=== PATIENT | female | born 1980 | race Caucasian/White ===

== ENCOUNTER 2024-11-07 02:21 | Emergency (ER) | payer OTHER, SELFPAY ==
[2024-11-07] VITALS (10 sets, daily range): BP systolic 152–210; BP diastolic 75–125; PULSE 87–98; RESP 16–18; TEMP 36.7–37; O2SAT 94–99; BMI 29.8
--- OUTSIDE RECORDS SUMMARY | 2024-11-07 02:24 | XMS_ITS | Clinical Summary ---
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 Active famotidine (PEPCID) 40 mg tabletIndications :Gastroesophageal reflux disease, unspecified whether esophagitis present Take 1 Tablet (40 mg) by mouth two times daily. 60 Tablet 3 Active hydrOXYzine pamoate (VISTARIL) 25 mg capsuleIndication s:Anxiety Take 1-2 Capsules (25-50 mg) by mouth at bedtime if needed (sleep or anxiety). 20 Capsule 3 Active losartan-hydrochl orothiazide, 50-12.5 mg, (HYZAAR) 50-12.5 mg tabletIndications :Primary hypertension Take 1 Tablet by mouth once daily. 30 Tablet 3 Active famotidine (PEPCID) 40 mg tabletIndications :Gastroesophageal reflux disease, unspecified whether esophagitis present Take 1 Tablet (40 mg) by mouth once daily. 30 Tablet 3 Active LORazepam (ATIVAN) 0.5 mg tabIndications:An xiety Take 1 Tablet (0.5 mg) by mouth three times daily. 6 Tablet 3 Active Active Problems Problem Noted Date Diagnosed Date Benign cyst of left breast 01/05/2022 Primary hypertension 01/05/2022 Immunizations Immunization Administration Dates Next Due DTaP 09/27/1983,12/23/1980,1979 ,1979 HepA-HepB (Twinrix) 11/27/2012,04/09/2012,2011 Hepatitis B, Unspecified 11/28/2011 Influenza A (H1N1), Inactivated 06/30/2009 Influenza Virus, Unspecified 05/04/2014 Influenza, IIV3 (Age >=3 years) 04/09/2012 Influenza, IIV4 06/06/2016,06/23/2015 MMR 09/23/1980,07/29/1980 Polio Virus, Unspecified 09/27/1983,12/23/1980,0 1979,1979 Tdap 10/06/2011 Family History Medical History Relation Name Comments Heart failure Father Cancer-breast Maternal Grandmother Cancer-breast Sister Relation Name Status Comments Father Maternal Grandmother Sister Social History Tobacco Use Types Packs/Day Years Used Date Smoking Tobacco: Never Smokeless Tobacco: Never Tobacco Cessation:Counseling Given: Yes Alcohol Use Standard Drinks/Week Comments No 0 (1 standard drink = 0.6 oz pur e alcohol) Social Connections Answer Date Recorded Frequency of Communication with Friends and Fami ly Not on file 01/05/2022 Comments No Sex and Gender Information Value Date Recorded Sex Assigned at Not on file 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 Gender Identity Not on file Sexual Orientation Not on file Obstetrics History Last Filed Vital Signs Vital Sign Reading Time Taken Comments Blood Pressure 198/117 10/25/2022 10:10 PM CDT Provider aware Pulse 94 10/25/2022 6:28 PM CDT Temperature 36.2 C (97.1 F) 10/25/2022 10:31 PM CDT Respiratory Rate 14 10/25/2022 10:3 1 PM CDT Oxygen Saturation 97% 10/25/2022 6:2 8 PM CDT Inhaled Oxygen Concentration - - Weight 81.6 kg (179 lb 12.8 oz) 10/25/2022 5:30 PM CDT Height 170.2 cm (5' 7) 10/25/2022 5:30 PM CDT Body Mass Index 28.16 10/25/2022 5:30 PM CDT Plan of Treatment Health Maintenance Due Date Last Done Comments HIV for age 15-65 1994 Hepatitis C screening for age 18-79 1997 Pap test for age 21-65 02/09/2000 Depression screening for age 12+ 11/08/2017 11/08/2016 Tetanus booster 10/05/2021 10/06/2011 BMI (ht and wt on same day) for age 18+ 01/05/2023 01/05/2022, 06/20/2017, 11/08/2016 Colonoscopy through age 75 02/09/2024 Lipids for age 45-75 02/09/2024 Mammogram for age 45-75 02/09/2024 01/04/2022 COVID-19 vaccine series (2023- season) 2024 Influenza Vaccine (Season Ended) 2025 06/06/2016, 06/23/2015, 05/04/2014, Additional history exists Tdap Completed 10/06/2011 Pneumococcal series for age 6-49 Aged Out No longer eligible based on patient's age to complete this topic Procedures Procedure Name Priority Date/Time Associated Diagnosis Comments XR MAMMO MAXWELL BILAT DIAG MALLORY 01/04/2022 2:22 PM CDT Lump in female breast from Last 3 Months or Most Recently Relevant to Health Maintenance Results * XR MAMMO MAXWELL BILAT DIAG (01/04/2022 2:22 PM CDT) Anatomical Region Laterality Modality BREASTS, Breast Left, Breast Right Bilateral Mammography Impressions 01/04/2022 3:40 PM CDT 3.9 cm simple cyst LEFT breast 2 o'clock 3 cm from the nipple. No malignancy. RECOMMENDATIONS: Annual BILATERAL screening mammography. Results and recommendations were discussed with the patient at the time of the exam. BI-RADS Category 2: Benign Dictated by: Vito Velez MD @01/04/2022 2:22:09 PM / VAHID:[email or web address] PATIENTS: You will also receive a letter with your examination results in an easy to read format. If you have questions about your results, please contact your referring provider. Narrative 01/04/2022 3:40 PM CDT For Patients: As a result of the Century Cures Act, medical imaging exams and procedure reports are released immediately into your electronic medical record. You may view this report before your referring provider. If you have questions, please contact your health care provider. DIGITAL DIAGNOSTIC BILATERAL MAMMOGRAM USING TOMOSYNTHESIS AND COMPUTER-AIDED DETECTION, 01/04/2022 LEFT BREAST ULTRASOUND, 01/04/2022 CLINICAL HISTORY: LEFT breast lump. COMPARISON: None. TECHNIQUE: Digital BILATERAL mammogram in four projections. Tomosynthesis and computer-aided detection utilized. Real-time ultrasound imaging of LEFT breast with imaging documentation. BREAST COMPOSITION: The breasts are heterogeneously dense, which may obscure small masses. FINDINGS: 3D CC/MLO mammogram submitted bilaterally. Circumscribed mass upper outer quadrant LEFT breast. No architectural distortion. Normal RIGHT breast mammograms. Incidental benign punctate calcifications bilaterally. Targeted LEFT breast ultrasound performed 2 o'clock 3 cm from the nipple. In this location there is a circumscribed anechoic simple cyst with increased through-transmission measuring 3.9 x 2.9 x 3.3 cm. us Antonio Molina MD MAMMO Final Resu lt from Last 3 Months or Most Recently Relevant to Health Maintenance Additional Health Concerns Infection Onset Date Last Indicated MRSA Comment:MRSA - 06/2006 wound 01/28/2014 01/28/2014 Insurance [address] [place] [address] [facility] [place] [facility] Member Subscriber Plan / Payer (Ef fective 2022-Present) Name:Krystle Michaels Relation to Subscriber:Self Name:Krystle Michaels Payer ID:Not on file Group ID:Not on file Type:Not on file Address: FOR [employer] [address] [place] [address] Care Teams Exceptional Children'S Teacher Relationship Specialty Start Date End Date Pcp, No . PCP - General 11/08/16
[2024-11-07] MEDS: TRANEXAMIC ACID 100 MG/ML INJ 1000 MG IV (02:51)
--- NOTE | 2024-11-07 02:55 | ED_ITS ---
HPI - General Adult General Date Seen: 11/07/24 <Chel Villalobos MD - Last Filed: 11/07/24 03:01> Chief complaint: Vaginal Bleeding <Chel Villalobos MD - Last Filed: 11/07/24 03:01> Stated complaint: Heavy vaginal bleeding, large clots <Chel Villalobos MD - Last Filed: 11/07/24 03:01> Time Seen by Provider: 11/07/24 02:30 <Chel Villalobos MD - Last Filed: 11/07/24 03:01> History of Present Illness HPI narrative: Patient is a 44-year-old woman here for evaluation of heavy vaginal bleeding. She notes she generally has regular periods still, a year ago she had a very heavy period when she was visiting her sister in [place] and was seen in an ER there. She says that they gave her some kind of pain medication but does not think they gave her anything else. She does note that they did an ultrasound and said that she did not have any abnormalities. Since then she has had regular, normal periods. She got her period a couple of days ago and started on normal, but tonight she had heavy bleeding with clots. She feels kind of lightheaded but has not fainted. No significant abdominal pain. No suspicion of . She is supposed to be on high blood pressure medicines but has not been to a doctor for while, she does admit she has fever of healthcare. She does not have a doctor either primary care or [facility]. No current medications. <Chel Villalobos MD - Last Filed: 11/07/24 03:01> Related Data Home medications: Previous Rx's ?Medication ?Instructions ?Recorded lisinopril 20 mg tablet 20 mg PO DAILY #30 tabs 11/07/24 medroxyprogesterone 10 mg tablet 20 mg (2 x 10 mg) PO DAILY #9 tabs 11/07/24 (Provera) <Chel Villalobos MD - Last Filed: 11/07/24 03:01> Allergies/adverse reactions: Allergies Allergy/AdvReac Type Severity Reaction Status Date / Time No Known Drug Allergies Allergy Verified 11/07/24 02:31 <Chel Villalobos MD - Last Filed: 11/07/24 03:01> Review of Systems Status of ROS: Reports: 10 or more systems reviewed and unremarkable except as noted in History and below <Chel Villalobos MD - Last Filed: 11/07/24 03:01> [facility] Medical History: Medical History GERD (gastroesophageal reflux disease) ?K21.9 - Gastro-esophageal reflux disease without esophagitis (ICD-10) MRSA (methicillin resistant staph aureus) culture positive ?Z22.322 - Carrier or suspected carrier of Methicillin resistant Staphylococcus aureus (ICD-10) Anxiety ?F41.9 - Anxiety disorder, unspecified (ICD-10) Primary hypertension ?I10 - Essential (primary) hypertension (ICD-10) Benign cyst of left breast ?N60.02 - Solitary cyst of left breast (ICD-10) <Chel Villalobos MD - Last Filed: 11/07/24 03:01> Surgical History: Surgical History History of neck surgery ?Z98.890 - Other specified postprocedural states (ICD-10) History of cholecystectomy ?Z90.49 - Acquired absence of other specified parts of digestive tract (ICD- 10) <Chel Villalobos MD - Last Filed: 11/07/24 03:01> Social History: Social History Smoking Status: Never smoker Second hand tobacco smoke exposure: No How often do you have a drink containing alcohol: never AUDIT-C Alcohol total score: 0 Non-prescribed substance use: denies use <Chel Villalobos MD - Last Filed: 11/07/24 03:01> Exam Narrative: Exam Narrative: Vital signs reviewed In general, alert, nontoxic Head: Normocephalic, atraumatic. Eyes: Sclera clear. Pupils equal and reactive. ENT: Mucous membranes moist. Neck: Supple without adenopathy. Heart: Regular rate and rhythm without murmur. Lungs: Clear. No increased work of breathing, crackles or wheezes. Abdomen: Soft, nontender to palpation. Pelvic: Normal external genitalia. There was some liquid blood in the vagina, small clot was at the cervix. She has mild to moderate continued bleeding from the cervix, no other abnormalities. Extremities: Well perfused, pulses intact. No significant edema. Neurologic: Alert, conversant. Speech fluent, face symmetric. Moves all extremities equally. Skin: Warm, dry well perfused. Affect: Normal. <Chel Villalobos MD - Last Filed: 11/07/24 03:01> Const: Vital Signs, click to edit/add: Vital Signs - 24 hr 11/07/24 02:27 11/07/24 02:59 11/07/24 03:01 Temperature 98.1 F Pulse Rate 91 90 Pulse Rate [Pulse Oximeter] 98 Respiratory Rate 16 Blood Pressure 165/100 H 172/107 H Blood Pressure [Ri ght Upper Arm] 210/125 H Pulse Oximetry 99 96 97 Oxygen Delivery Me thod Room Air 11/07/24 03:32 11/07/24 04:02 11/07/24 04:32 Temperature Pulse Rate 89 87 87 Pulse Rate [Pulse Oximeter] Respiratory Rate Blood Pressure 179/101 H 159/75 H 162/82 H Blood Pressure [Ri ght Upper Arm] Pulse Oximetry 94 96 94 Oxygen Delivery Me thod 11/07/24 05:02 11/07/24 05:32 11/07/24 06:02 Temperature 98.6 F Pulse Rate 87 87 Pulse Rate [Pulse Oximeter] Respiratory Rate 18 Blood Pressure 152/90 H 165/92 H 156/97 H Blood Pressure [Ri ght Upper Arm] Pulse Oximetry 98 94 Oxygen Delivery Me thod 11/07/24 06:32 Temperature 98.6 F Pulse Rate 90 Pulse Rate [Pulse Oximeter] Respiratory Rate 18 Blood Pressure 160/100 H Blood Pressure [Ri ght Upper Arm] Pulse Oximetry 95 Oxygen Delivery Me thod <Chel Villalobos MD - Last Filed: 11/07/24 03:01> Vital Signs, click to edit/add: Vital Signs - 24 hr 11/07/24 02:27 11/07/24 02:59 11/07/24 03:01 Temperature 98.1 F Pulse Rate 91 90 Pulse Rate [Pulse Oximeter] 98 Respiratory Rate 16 Blood Pressure 165/100 H 172/107 H Blood Pressure [Ri ght Upper Arm] 210/125 H Pulse Oximetry 99 96 97 Oxygen Delivery Me thod Room Air 11/07/24 03:32 11/07/24 04:02 11/07/24 04:32 Temperature Pulse Rate 89 87 87 Pulse Rate [Pulse Oximeter] Respiratory Rate Blood Pressure 179/101 H 159/75 H 162/82 H Blood Pressure [Ri ght Upper Arm] Pulse Oximetry 94 96 94 Oxygen Delivery Me thod 11/07/24 05:02 11/07/24 05:32 11/07/24 06:02 Temperature 98.6 F Pulse Rate 87 87 Pulse Rate [Pulse Oximeter] Respiratory Rate 18 Blood Pressure 152/90 H 165/92 H 156/97 H Blood Pressure [Ri ght Upper Arm] Pulse Oximetry 98 94 Oxygen Delivery Me thod 11/07/24 06:32 Temperature 98.6 F Pulse Rate 90 Pulse Rate [Pulse Oximeter] Respiratory Rate 18 Blood Pressure 160/100 H Blood Pressure [Ri ght Upper Arm] Pulse Oximetry 95 Oxygen Delivery Me thod <Chel Arizmendi MD - Last Filed: 11/07/24 09:28> Course Course ED Course: After her exam, an IV was placed, I am going to send a type and screen although think the likelihood of needing transfusion is low. I am going to give her some TXA, check a hemoglobin and a test. Will reassess after labs. Did discuss with her that I will prescribe lisinopril for her as this is what she used to be on for her blood pressure, at least 1 of the medicines she was on. Reviewed with her that she really needs to establish with primary care so that her blood pressure can be better controlled. She will also need to be followed by [facility]. <Chel Villalobos MD - Last Filed: 11/07/24 03:01> Reevaluation(s) Reevaluation #1: Patient results of ultrasound discussed with Dr. Goodman patient account specialist strategic consultant. Feels that patient could go home but if further bleeding recommends Provera 60 mg or 3 tablets today followed by 1 daily for 9 days. Currently awaiting 2nd hemoglobin to ensure stability. Review of chart notes no IV fluids and medication given was TXA <Chel Arizmendi MD - Last Filed: 11/07/24 09:28> Consultations Additional Consultation(s): OBGYN suggest 60 mg of Provera now and 20 mg daily for the next 9 days. With OBGYN. <Chel Arizmendi MD - Last Filed: 11/07/24 09:28> Vital Signs Vital signs: Initial Vital Signs Temperature 98.1 F 11/07/24 02:27 Temperature Source Temporal Artery Scan 11/07/24 02:27 Pulse Rate 98 11/07/24 02:27 Respiratory Rate 16 11/07/24 02:27 Blood Pressure 210/125 H 11/07/24 02:27 Blood Pressure Mean 153 H 11/07/24 02:27 Blood Pressure Position Sitting 11/07/24 02:27 Pulse Oximetry 99 11/07/24 02:27 Oxygen Delivery Method Room Air 11/07/24 02:27 Vital Signs Temperature 98.1 F 11/07/24 02:27 Pulse Rate 98 11/07/24 02:27 Respiratory Rate 16 11/07/24 02:27 Blood Pressure 210/125 H 11/07/24 02:27 Pulse Oximetry 99 11/07/24 02:27 Oxygen Delivery Method Room Air 11/07/24 02:27 Temperature 98.6 F 11/07/24 06:32 Pulse Rate 90 11/07/24 06:32 Respiratory Rate 18 11/07/24 06:32 Blood Pressure 160/100 H 11/07/24 06:32 Pulse Oximetry 95 11/07/24 06:32 Oxygen Delivery Method Room Air 11/07/24 02:27 <Chel Villalobos MD - Last Filed: 11/07/24 03:01> Initial Vital Signs Temperature 98.1 F 11/07/24 02:27 Temperature Source Temporal Artery Scan 11/07/24 02:27 Pulse Rate 98 11/07/24 02:27 Respiratory Rate 16 11/07/24 02:27 Blood Pressure 210/125 H 11/07/24 02:27 Blood Pressure Mean 153 H 11/07/24 02:27 Blood Pressure Position Sitting 11/07/24 02:27 Pulse Oximetry 99 11/07/24 02:27 Oxygen Delivery Method Room Air 11/07/24 02:27 Vital Signs Temperature 98.1 F 11/07/24 02:27 Pulse Rate 98 11/07/24 02:27 Respiratory Rate 16 11/07/24 02:27 Blood Pressure 210/125 H 11/07/24 02:27 Pulse Oximetry 99 11/07/24 02:27 Oxygen Delivery Method Room Air 11/07/24 02:27 Temperature 98.6 F 11/07/24 06:32 Pulse Rate 90 11/07/24 06:32 Respiratory Rate 18 11/07/24 06:32 Blood Pressure 160/100 H 11/07/24 06:32 Pulse Oximetry 95 11/07/24 06:32 Oxygen Delivery Method Room Air 11/07/24 02:27 <Chel Arizmendi MD - Last Filed: 11/07/24 09:28> Medications Administered Medications: Discontinued Medications Generic Name Dose Route Start Last Admin Trade Name Freq PRN Reason Stop Dose Admin Tranexamic Acid 1,000 mg 11/07/24 02:45 11/07/24 02:51 Tranexamic Acid 100 Mg/Ml Inj IV 11/07/24 02:46 1,000 mg ONCE ONE Administration <Chel Villalobos MD - Last Filed: 11/07/24 03:01> Discontinued Medications Generic Name Dose Route Start Last Admin Trade Name Freq PRN Reason Stop Dose Admin Tranexamic Acid 1,000 mg 11/07/24 02:45 11/07/24 02:51 Tranexamic Acid 100 Mg/Ml Inj IV 11/07/24 02:46 1,000 mg ONCE ONE Administration <Chel Arizmendi MD - Last Filed: 11/07/24 09:28> Medical Decision Making MDM Narrative Medical decision making narrative: This patient was signed out to me by my colleague Dr. Villalobos For review of lab values and disposition. At this time patient feels that her bleeding has slowed after administration of TXA. She has no pain at this time and no complaints. hemoglobin is 9.4. Unfortunately no previous values in our system and patient cannot recall what her previous hemoglobin may have been. Platelets are 460,000 and white count is normal. test is negative. Patient will have repeat hemoglobin at 0700 hours ( 4 hours after initial lab) pelvic ultrasound also ordered at this time. 1. Dysfunctional uterine bleeding-hemoglobin initially 9.4 dropped to 8.5/5 hour time frame. No fluids were given. TXA was given and while patient has continued bleeding it has slowed down. We did have patient ambulate and there was no evidence of hypotension or significant tachycardia. She has a mild headache but no shortness of breath or lightheadedness or syncopal symptoms. At this time will go ahead and treat with Provera 60 mg in the ED. Will have patient continue with 20 mg daily over the next 9 days. This per discussion with OBGYN, Dr. Goodman. Patient will return for worsening symptoms such as lightheadedness, chest pain, shortness of breath and increased bleeding. 2. Hypertension-per Dr. Villalobos will be treating with lisinopril daily. Blood pressure prior to discharge 160/100. Patient struck to to follow up and establish with primary care as she may need further medications. 3. Disposition-home at this time. Return as needed for worsening symptoms. Follow-up with OBGYN next week. <Chel Arizmendi MD - Last Filed: 11/07/24 09:28> Medical Records Medical records reviewed: Yes I reviewed the patient's medical records <Cehl Arizmendi MD - Last Filed: 11/07/24 09:28> Lab Data Lab results reviewed: Yes I reviewed the patient's lab results <Chel Arizmendi MD - Last Filed: 11/07/24 09:28> Labs: Lab Results 11/07/24 11/07/24 Range/Units 02:55 08:09 WBC 8.42 (4.50-11.00) K/uL RBC 3.77 L (4.00-5.20) m/uL Hgb 9.4 L 8.5 L (12.0-16.0) gm/dL Hct 30.2 L (33.0-51.0) % MCV 80 (80-100) fL MCH 25 L (26-34) pg MCHC 31 L (32-36) gm/dL RDW Coeff of Shaw 15.4 (11.5-15.5) % Plt Count 460 H (140-440) K/uL Neut % (Auto) 66.0 (42.0-72.0) % Lymph % (Auto) 25.9 (20-44) % Kings % (Auto) 5.7 (0.0-11.0) % Eos % (Auto) 1.2 (0.0-7.0) % Baso % (Auto) 0.6 (0.0-3.0) % Neut # (Auto) 5.56 (1.7-7.0) K/uL Lymph # (Auto) 2.18 (0.90-2.90) K/uL Kings # (Auto) 0.50 (0.00-0.90) K/UL Eos # (Auto) 0.10 (0.00-0.50) K/uL Baso # (Auto) 0.05 (0.00-0.30) K/uL Abs Immat Gran (auto) 0.05 (0.00-0.30) K/uL Imm/Tot Granulo (auto) 0.6 % HCG, Qual Negative (Negative) Blood Type A Negative Antibody Screen NEGATIVE <Chel Villalobos MD - Last Filed: 11/07/24 03:01> Lab Results 11/07/24 11/07/24 Range/Units 02:55 08:09 WBC 8.42 (4.50-11.00) K/uL RBC 3.77 L (4.00-5.20) m/uL Hgb 9.4 L 8.5 L (12.0-16.0) gm/dL Hct 30.2 L (33.0-51.0) % MCV 80 (80-100) fL MCH 25 L (26-34) pg MCHC 31 L (32-36) gm/dL RDW Coeff of Shaw 15.4 (11.5-15.5) % Plt Count 460 H (140-440) K/uL Neut % (Auto) 66.0 (42.0-72.0) % Lymph % (Auto) 25.9 (20-44) % Kings % (Auto) 5.7 (0.0-11.0) % Eos % (Auto) 1.2 (0.0-7.0) % Baso % (Auto) 0.6 (0.0-3.0) % Neut # (Auto) 5.56 (1.7-7.0) K/uL Lymph # (Auto) 2.18 (0.90-2.90) K/uL Kings # (Auto) 0.50 (0.00-0.90) K/UL Eos # (Auto) 0.10 (0.00-0.50) K/uL Baso # (Auto) 0.05 (0.00-0.30) K/uL Abs Immat Gran (auto) 0.05 (0.00-0.30) K/uL Imm/Tot Granulo (auto) 0.6 % HCG, Qual Negative (Negative) Blood Type A Negative Antibody Screen NEGATIVE <Chel Arizmendi MD - Last Filed: 11/07/24 09:28> Imaging Data US - abdomen: Attestation: I have reviewed the pertinent imaging results. <Chel Arizmendi MD - Last Filed: 11/07/24 09:28> Radiologist's impression: he uterus measures 9.7 x 5.8 x 6.6 centimeters. There is a lower uterine segment myoma measuring 1.3 x 1.0 x 1.1 centimeters. This does not appear to have submucosal extension. The endometrium measures 1.5 centimeters and is heterogeneous in appearance. There is also an indistinct junctional zone. This can be seen in uterine adenomyosis. Further evaluation of the endometrium is advised for definitive evaluation. The right ovary measures 3.4 x 1.9 x 2.5 centimeters. The left ovary measures 3.7 x 1.8 x 3.3 centimeters. Color Doppler flow is present. Spectral Doppler was not performed. Functional follicles are noted bilaterally. Impression: 1. Normal-size uterus. Lower uterine segment myoma. This is intramural without obvious submucosal extension 2. Mildly prominent heterogeneous endometrium with an abnormal junctional zone raising the possibility of uterine adenomyomatosis. Further evaluation of the endometrium is recommended in the setting of abnormal bleeding 3. Unremarkable ovaries. <Chel Arizmendi MD - Last Filed: 11/07/24 09:28> Discharge Plan Discharge Clinical Impression: Vaginal bleeding, Hypertension <Chel Villalobos MD - Last Filed: 11/07/24 03:01> Patient Disposition: Home, Self-Care <Chel Villalobos MD - Last Filed: 11/07/24 03:01> Condition: Improved <Chel Villalobos MD - Last Filed: 11/07/24 03:01> Instructions: Abnormal (Dysfunctional) Uterine Bleeding (ED), Hypertension (ED) <Chel Villalobos MD - Last Filed: 11/07/24 03:01> Additional Instructions: It is important for you to establish primary care to get your blood pressure under better control. I have prescribed lisinopril 20 mg daily as a starting point, but it is highly likely that you will need additional dosage changes or possibly additional medications. You can follow-up with our clinic here at [facility] if this is convenient for you, , or you can follow-up in [facility], or wherever is easiest for you. You should also be seen by [facility], phone number for our clinic is [phone]. You may need additional evaluation for you heavy bleeding. If you have recurrent heavy bleeding, bleed through a pad an hour for more than 2 hours, she should return to the emergency department. You will also need to continue the medication called Provera given today to reduce your bleeding. It will be 1 tablet are 20 mg daily for 9 days starting tomorrow morning as you received the 1st dose of 60 mg in the ED today. Please monitor your bleeding and if you should start having increased bleeding, lightheadedness, chest pain or shortness of breath return to the emergency room for evaluation. Otherwise, follow up in our [facility] for a recheck and discussion about handling of this bleeding. The phone number is [phone]. <Chel Villalobos MD - Last Filed: 11/07/24 03:01> Prescriptions: New lisinopril 20 mg tablet 20 mg PO DAILY Qty: 30 2RF medroxyprogesterone [Provera] 10 mg tablet 20 mg PO DAILY Qty: 9 0RF <Chel Villalobos MD - Last Filed: 11/07/24 03:01> Stand Alone Forms: [employer] Info Instructions <Chel Villalobos MD - Last Filed: 11/07/24 03:01>
[2024-11-07 03:01] LABS: Basophils Absolute Auto 0.05 K/uL (0.00-0.30); Basophils Percent Auto 0.6 % (0.0-3.0); Eosinophils Percent Auto 1.2 % (0.0-7.0); Hematocrit 30.2 % (33.0-51.0); Hemoglobin* 9.4 gm/dL (12.0-16.0); Immature Granulocytes Abs Auto 0.05 K/uL (0.00-0.30); Immature Granulocytes Pct Auto 0.6 %; Lymphocytes Absolute Auto 2.18 K/uL (0.90-2.90); Lymphocytes Percent Auto 25.9 % (20-44); Mean Corpuscular HGB Conc 31 gm/dL (32-36); Mean Corpuscular Hemoglobin 25 pg (26-34); Mean Corpuscular Volume 80 fL (80-100); Monocytes Percent Auto 5.7 % (0.0-11.0); Neutrophils Absolute Auto 5.56 K/uL (1.7-7.0); Platelet Count* 460 K/uL (140-440); RDW Coefficient of Variation % 15.4 % (11.5-15.5); Red Blood Count 3.77 m/uL (4.00-5.20); White Blood Count* 8.42 K/uL (4.50-11.00)
--- OUTSIDE RECORDS SUMMARY | 2024-11-07 03:07 | XMS_ITS | Clinical Summary ---
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 PCP - General 11/08/16
[2024-11-07 03:28] LABS: HCG Qualitative Serum* Negative (Negative); Slide Review Reflex No
--- NOTE | 2024-11-07 06:30 | CRLHL7_ITS ---
For Patients: As a result of the Century Cures Act, medical imaging exams and procedure reports are released immediately into your electronic medical record. You may view this report before your referring provider. If you have questions, please contact your health care provider. Indication: Abnormal bleeding Technique: Sonography of the pelvis was performed. Imaging was acquired transvaginally only. Grayscale imaging was provided. Color Doppler was provided. Spectral Doppler was not performed Comparison: None Findings: The uterus measures 9.7 x 5.8 x 6.6 centimeters. There is a lower uterine segment myoma measuring 1.3 x 1.0 x 1.1 centimeters. This does not appear to have submucosal extension. The endometrium measures 1.5 centimeters and is heterogeneous in appearance. There is also an indistinct junctional zone. This can be seen in uterine adenomyosis. Further evaluation of the endometrium is advised for definitive evaluation. The right ovary measures 3.4 x 1.9 x 2.5 centimeters. The left ovary measures 3.7 x 1.8 x 3.3 centimeters. Color Doppler flow is present. Spectral Doppler was not performed. Functional follicles are noted bilaterally. Impression: 1. Normal-size uterus. Lower uterine segment myoma. This is intramural without obvious submucosal extension 2. Mildly prominent heterogeneous endometrium with an abnormal junctional zone raising the possibility of uterine adenomyomatosis. Further evaluation of the endometrium is recommended in the setting of abnormal bleeding 3. Unremarkable ovaries. Dictated by Shaka Reaves MD @ 11/07/2024 7:26:25 AM (Electronically Signed)
[2024-11-07 08:15] LABS: Hemoglobin* 8.5 gm/dL (12.0-16.0)
[2024-11-07] MEDS: MEDROXYPROGESTERONE 5 MG TABLET 60 MG PO (09:56)
== END 2024-11-07 10:07 | disposition home or self-care (01) ==
PROVIDERS: Emergency Medicine; Emergency Provider Family Medicine
DX: N93.9 Abnormal uterine and vaginal bleeding, unspecified (principal); I10 Essential (primary) hypertension
CPT/HCPCS: 36415; 76830; 84703; 85018; 85025; 86850; 86900; 86901; 99284; A9270

== ENCOUNTER 2024-11-08 16:59 | Emergency (ER) | payer OTHER, SELFPAY ==
--- OUTSIDE RECORDS SUMMARY | 2024-11-08 17:02 | XMS_ITS | Clinical Summary ---
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 PCP - General 11/08/16
[2024-11-08 17:18] VITALS: BP 179/89; PULSE 102; RESP 22; TEMP 35.9; O2SAT 100; BMI 29.8
--- NOTE | 2024-11-08 17:28 | ED.FEMALEGU ---
HPI - Female Genitourinary General Chief complaint: Vaginal Bleeding Stated complaint: Vomiting, Vaginal bleeding Time Seen by Provider: 11/08/24 17:03 History of Present Illness HPI Narrative: Patient is a 44-year-old woman who is seen yesterday for dysfunctional uterine bleeding. She left here on Provera at the direction of OBGYN for hemoglobin of 8.5. She had ultrasound done in the emergency room yesterday raising the concern of adenomyomatosis. Patient states that her bleeding has continued since yesterday. She has been passing clots. She has had general nausea and vomiting but no significant abdominal pain or vaginal pain. She is not on any blood thinners in takes no aspirin. She does have mild tachycardia upon presentation today which is a new finding. Blood pressure is elevated she does take lisinopril 20 mg daily. No concerns. Patient is in modest distress. Related Data Previous Rx's ?Medication ?Instructions ?Recorded lisinopril 20 mg tablet 20 mg PO DAILY #30 tabs 11/07/24 medroxyprogesterone 10 mg tablet 20 mg (2 x 10 mg) PO DAILY #9 tabs 11/07/24 (Provera) Allergies Allergy/AdvReac Type Severity Reaction Status Date / Time No Known Drug Allergies Allergy Verified 11/08/24 17:17 Review of Systems Status of ROS: Reports: 10 or more systems reviewed and unremarkable except as noted in History and below [facility] Medical History GERD (gastroesophageal reflux disease) ?K21.9 - Gastro-esophageal reflux disease without esophagitis (ICD-10) MRSA (methicillin resistant staph aureus) culture positive ?Z22.322 - Carrier or suspected carrier of Methicillin resistant Staphylococcus aureus (ICD-10) Anxiety ?F41.9 - Anxiety disorder, unspecified (ICD-10) Primary hypertension ?I10 - Essential (primary) hypertension (ICD-10) Benign cyst of left breast ?N60.02 - Solitary cyst of left breast (ICD-10) Surgical History History of neck surgery ?Z98.890 - Other specified postprocedural states (ICD-10) History of cholecystectomy ?Z90.49 - Acquired absence of other specified parts of digestive tract (ICD-10) Social History Smoking Status: Never smoker Second hand tobacco smoke exposure: No How often do you have a drink containing alcohol: never AUDIT-C Alcohol total score: 0 Non-prescribed substance use: denies use Exam Narrative: Exam Narrative: EXAM GENERAL: Patient appears moderately distressed. EYES: No scleral icterus. LYMPH: No supraclavicular or cervical lymphadenopathy. SKIN: Visible skin seen during exam normal or with benign process only. EXT: No dependent lower extremity pedal edema. HEART: Regular rate and rhythm with no murmurs, rubs, or gallops. LUNGS: Clear to auscultation bilaterally with no crackles or wheezes. ABD: Bowel sounds present. Mildly distended no rebound or masses. PSYCH: Good eye contact, speech is not pressured. Const: Vital Signs, click to edit/add: Vital Signs - 24 hr 11/08/24 17:18 11/08/24 19:06 Temperature 96.6 F L Pulse Rate [Pulse Oximeter] 102 H 100 Respiratory Rate 22 Blood Pressure [Le ft Upper Arm] 179/89 H 176/81 H Pulse Oximetry 100 98 Oxygen Delivery Me thod Room Air Room Air Course Course ED Course: CBC lactate comprehensive metabolic panel ordered. IV hydration and Zofran provided. Will reassess. Vital Signs Vital signs: Initial Vital Signs Temperature 96.6 F L 11/08/24 17:18 Temperature Source Temporal Artery Scan 11/08/24 17:18 Pulse Rate 102 H 11/08/24 17:18 Pulse Rhythm Regular 11/08/24 17:18 Respiratory Rate 22 11/08/24 17:18 Blood Pressure 179/89 H 11/08/24 17:18 Blood Pressure Mean 119 H 11/08/24 17:18 Blood Pressure Position Sitting 11/08/24 17:18 Pulse Oximetry 100 11/08/24 17:18 Oxygen Delivery Method Room Air 11/08/24 17:18 Vital Signs Temperature 96.6 F L 11/08/24 17:18 Pulse Rate 102 H 11/08/24 17:18 Respiratory Rate 22 11/08/24 17:18 Blood Pressure 179/89 H 11/08/24 17:18 Pulse Oximetry 100 11/08/24 17:18 Oxygen Delivery Method Room Air 11/08/24 17:18 Temperature 96.6 F L 11/08/24 17:18 Pulse Rate 100 11/08/24 19:06 Respiratory Rate 22 11/08/24 17:18 Blood Pressure 176/81 H 11/08/24 19:06 Pulse Oximetry 98 11/08/24 19:06 Oxygen Delivery Method Room Air 11/08/24 19:06 Medications Administered Medications: Generic Name Dose Route Start Last Admin Trade Name Freq PRN Reason Stop Dose Admin Sodium Chloride 1,000 mls @ 1,000 mls/hr 11/08/24 19:06 11/08/24 19:58 0.9 % Sodium Chloride 1000 Ml IV 11/08/24 20:05 Infused .Q1H MAR Infusion Discontinued Medications Generic Name Dose Route Start Last Admin Trade Name Freq PRN Reason Stop Dose Admin Sodium Chloride 1,000 mls @ 1,000 mls/hr 11/08/24 17:27 11/08/24 19:01 0.9 % Sodium Chloride 1000 Ml IV 11/08/24 18:26 Infused .Q1H MAR Infusion Ondansetron HCl 4 mg 11/08/24 17:30 11/08/24 18:23 Ondansetron 2 Mg/Ml Inj IVP 11/08/24 17:31 4 mg ONCE ONE Administration MDM - Female Genitourinary MDM Narrative Medical decision making narrative: Patient presents with continue vaginal bleeding with this time with nausea and vomiting. She has no abdominal pain. Her Um workup from yesterday was reviewed including or abnormal ultrasound. Hemoglobin is actually gone up. She received 2 L of normal saline as well as 4 mg of IV Zofran. I did review the case with OBGYN they do recommend a higher dose of Provera at home with 20 mg b.i.d.. She will run out sooner than the propose 9 days and does need to follow-up with OBGYN this coming week. Contact information was given. Patient is feeling much better. The rest of the labs are for reasonably stable night did review the evidence of leukocytosis on her CBC with OBGYN as well. Lab Data Labs: Lab Results 11/08/24 Range/Units 18:20 WBC 24.64 H (4.50-11.00) K/uL RBC 3.80 L (4.00-5.20) m/uL Hgb 9.5 L (12.0-16.0) gm/dL Hct 30.8 L (33.0-51.0) % MCV 81 (80-100) fL MCH 25 L (26-34) pg MCHC 31 L (32-36) gm/dL RDW Coeff of Shaw 15.7 H (11.5-15.5) % Plt Count 508 H (140-440) K/uL Neut % (Auto) 86.0 H (42.0-72.0) % Lymph % (Auto) 8.1 L (20-44) % [place] % (Auto) 5.0 (0.0-11.0) % Eos % (Auto) 0.3 (0.0-7.0) % Baso % (Auto) 0.2 (0.0-3.0) % Neut # (Auto) 21.20 H (1.7-7.0) K/uL Lymph # (Auto) 2.00 (0.90-2.90) K/uL [place] # (Auto) 1.20 H (0.00-0.90) K/UL Eos # (Auto) 0.10 (0.00-0.50) K/uL Baso # (Auto) 0.00 (0.00-0.30) K/uL Abs Immat Gran (auto) 0.10 (0.00-0.30) K/uL Imm/Tot Granulo (auto) 0.4 % Sodium 137 (135-149) mmol/L Potassium 3.6 (3.6-5.1) mmol/L Chloride 106 (96-114) mmol/L Carbon Dioxide 18 L (20-32) mmol/L Anion Gap 13 (7-15) mEq/L BUN 13 (5-24) mg/dL Creatinine 0.8 (0.5-1.5) mg/dL Estimated Creat Clear 86.36 Estimated GFR 93 ml/min Glucose 150 H (60-115) mg/dL Lactate 2.9 H (0.5-1.9) mmol/L Calcium 8.7 (8.4-10.6) mg/dL Total Bilirubin 0.7 (0.1-1.5) mg/dL AST 30 (12-35) U/L ALT 30 (4-35) U/L Alkaline Phosphatase 74 (40-150) U/L Total Protein 7.7 (6.0-8.3) g/dL Albumin 4.4 (3.3-5.0) g/dL Discharge Plan Discharge Clinical Impression: Vaginal bleeding Patient Disposition: Home, Self-Care Condition: Stable Additional Instructions: Increase Provera to 1 tablet twice a day until gone. Contact OBGYN at the [facility] on Sunday to schedule follow-up. Advanced diet activity as tolerated. Activity Level: No Restrictions Discharge Diet: Regular Prescriptions: No Action lisinopril 20 mg tablet 20 mg PO DAILY Qty: 30 2RF medroxyprogesterone [Provera] 10 mg tablet 20 mg PO DAILY Qty: 9 0RF Follow Up/Referrals: Provider,Not a Local [Primary Care Provider] - Stand Alone Forms: XGIMI Info Instructions
[2024-11-08] MEDS: 0.9 % SODIUM CHLORIDE 1000 ml 1,000 ML IV ×2 (18:23→19:11)
[2024-11-08] MEDS: ONDANSETRON 2 MG/ML inj 4 MG IVP (18:23)
[2024-11-08 18:27] LABS: Lactate* 2.9 mmol/L (0.5-1.9)
[2024-11-08 18:28] LABS: Basophils Percent Auto 0.2 % (0.0-3.0); Eosinophils Percent Auto 0.3 % (0.0-7.0); Hematocrit 30.8 % (33.0-51.0); Hemoglobin* 9.5 gm/dL (12.0-16.0); Immature Granulocytes Pct Auto 0.4 %; Lymphocytes Percent Auto 8.1 % (20-44); Mean Corpuscular HGB Conc 31 gm/dL (32-36); Mean Corpuscular Hemoglobin 25 pg (26-34); Mean Corpuscular Volume 81 fL (80-100); Platelet Count* 508 K/uL (140-440); RDW Coefficient of Variation % 15.7 % (11.5-15.5); White Blood Count* 24.64 K/uL (4.50-11.00)
[2024-11-08 18:29] LABS: Slide Review Reflex No
[2024-11-08 18:49] LABS: Albumin* 4.4 g/dL (3.3-5.0); Chloride* 106 mmol/L (96-114); Potassium* 3.6 mmol/L (3.6-5.1); Sodium* 137 mmol/L (135-149)
[2024-11-08 18:51] LABS: Blood Urea Nitrogen* 13 mg/dL (5-24); Creatinine* 0.8 mg/dL (0.5-1.5); Est. Creatinine Clearance* 86.36; Estimated Glomerular Filt Rate 93 ml/min
[2024-11-08 18:52] LABS: Alanine Aminotransferase* 30 U/L (4-35); Alkaline Phosphatase* 74 U/L (40-150); Anion Gap 13 mEq/L (7-15); Aspartate Amino Transferase* 30 U/L (12-35); Bilirubin Total* 0.7 mg/dL (0.1-1.5); Calcium* 8.7 mg/dL (8.4-10.6); Carbon Dioxide* 18 mmol/L (20-32); Glucose* 150 mg/dL (60-115); Total Protein* 7.7 g/dL (6.0-8.3)
--- OUTSIDE RECORDS SUMMARY | 2024-11-08 19:01 | XMS_ITS | Clinical Summary ---
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 PCP - General 11/08/16
[2024-11-08 19:06] VITALS: BP 176/81; PULSE 100; O2SAT 98
== END 2024-11-08 20:16 | disposition home or self-care (01) ==
PROVIDERS: Emergency Provider Internal Medicine
DX: N93.9 Abnormal uterine and vaginal bleeding, unspecified (principal); R11.2 Nausea with vomiting, unspecified
CPT/HCPCS: 36415; 80053; 83605; 85025; 96361; 96374; 99283; 99284; J2405; J7030

== ENCOUNTER 2024-11-11 09:43 | Outpatient (CLI) | payer OTHER, SELFPAY ==
[2024-11-14 03:37] LABS: HPV Source Cervical; HPV, High Risk by TMA Not Detected
== END 2024-11-11 09:44 | disposition home or self-care (01) ==
PROVIDERS: Visit Provider Obstetrics & Gynecology
DX: N92.0 Excessive and frequent menstruation with regular cycle (principal); Z12.4 Encounter for screening for malignant neoplasm of cervix; Z11.51 Encounter for screening for human papillomavirus (HPV)
CPT/HCPCS: 84443; 87624; 87625; 88141; 88142

== ENCOUNTER 2024-11-14 07:47 | Day surgery (SDC) | payer OTHER, SELFPAY ==
[2024-11-14 08:04] LABS: Ur HCG Qualitative* Negative (Negative)
[2024-11-14] MEDS: SODIUM CHLORIDE 0.9 % (FLUSH) 10 ML SYRINGE IVF (08:10)
[2024-11-14] MEDS: LACTATED RINGERS 1000 ML 1,000 ML 100 ML IV (08:10)
[2024-11-14 08:13] VITALS: BMI 29.2
[2024-11-14 08:21] LABS: Hemoglobin* 8.6 gm/dL (12.0-16.0)
[2024-11-14 08:23] VITALS: BP 156/104; PULSE 91; RESP 16; TEMP 36.6; O2SAT 97
--- NOTE | 2024-11-14 08:48 | W.PM.H&PU ---
History & Physical Update History & Physical Update H&P Reviewed and patient assessed: No changes noted
[2024-11-14] MEDS: TRANEXAMIC ACID 100 MG/ML INJ 1000 MG IV (09:20)
[2024-11-14] MEDS: SILVER NITRATE APPLICATOR 1 EACH STICK..EA. TOPICAL (09:36)
[2024-11-14] MEDS: LIDOCAINE 1% MDV 20 ML INJECTION (09:36)
[2024-11-14] MEDS: levonorgestreL (Mirena) IUD 1 EACH INTRAUTERI (09:37)
[2024-11-14 09:56] VITALS: BP 153/85; PULSE 94; RESP 14; TEMP 36.6; O2SAT 98
--- NOTE | 2024-11-14 09:56 | P.GYNPRC_ITS ---
Procedure Note Date of procedure: 11/14/24 Will [facility] bill your pro fee for this procedure?: Yes Pre-op diagnosis: Heavy uterine bleeding Anemia of acute blood loss Thickened endometrium Post-op diagnosis: 1 cm endometrial polyp Otherwise as above Procedure: Hysteroscopy, polypectomy, and visual dilation and curettage Placement of Mirena IUD Anesthesia: MAC and local Complications: None Surgeon: Dory Stratton MD Estimated blood loss (mL): 10 IV fluids (mL): 500 Urine Output (mL): 10 Pathology: specimen obtained, sent to pathology (1. Endometrial curettings. 2. Urine for urinalysis and culture.) Condition: stable Disposition: same day Findings: 1. On exam under anesthesia, uterus was mobile, anteverted, and around 8 weeks size. Vagina was normal in appearance. The cervix had some prominent blood vessels, otherwise normal in appearance. 2. Upon hysteroscopy, survey the endocervix was normal. Survey of the endometrium revealed on 1 cm endometrial polyp in the posterior lower uterine segment. The remainder of the endometrium was mildly thickened, consistent with luteal phase endometrium. Cavity shape was normal, as were bilateral tubal ostia. 3. Uterus sounded to 8.5 cm. 4. The urine obtained via straight catheterization appeared cloudy. Procedure Description: Procedure in detail: Patient was taken to the operating room with IV running. She was positioned in dorsal lithotomy position with her legs fully supported in Yellofin stirrups. Monitored anesthesia care was administered. She was prepped and draped in the usual sterile fashion. Exam under anesthesia was performed for the above-noted findings. The bladder was straight catheterized. Speculum was inserted. Cervix visualized and grasped along the anterior lip with a single-tooth tenaculum. Paracervical block was performed with a total of 90 mL of 1% lidocaine. Cervix was serially dilated to accommodate the TRUCLEAR hysteroscope. This was assembled with saline inflow and outflow in place. The line was flushed of bubbles. The hysteroscope was advanced through the cervix into the endometrial cavity for the above noted findings. The tissue morcellator was then inserted through the operating channel. Window lock was performed. Under direct visualization, the endometrial cavity was circumferentially curetted with the tissue morcellator. The hysteroscope and morcellator were then removed from the uterus. Uterus sounded to 8.5 cm. The IUD is loaded into the insertion tube, inserted to the sounded depth, and the IUD is deployed. Insertion tube was removed. Strings are trimmed to 3 cm. Tenaculum was removed from the anterior lip of cervix. Hemostasis was achieved with silver nitrate. Patient tolerated procedure well. She was taken to recovery area in stable condition.
--- NOTE | 2024-11-14 09:57 | P.ANES_ITS ---
Anesthesia Charges Start Date/Time Anesthesia Start Date: 11/14/24 Anesthesia Start Time: 09:09 Stop Date/Time Anesthesia Stop Date: 11/14/24 Anesthesia Stop Time: 09:58 Coding CPT Codes CPT Codes: ANESTH HYSTEROSCOPE/GRAPH - 79738 ([id number]) P2 - PATIENT W/MILD SYST DISEASE, QK - PORTAL DEVELOPER 2-4 CNCRNT ANES PROC, QX - GROUND INSTRUCTOR ADVANCED SVC W/ MD MED DIRECTION
--- NOTE | 2024-11-14 09:57 | W.ANESCHARGE ---
Anesthesia Charges Start Date/Time Anesthesia Start Date: 11/14/24 Anesthesia Start Time: 09:09 Stop Date/Time Anesthesia Stop Date: 11/14/24 Anesthesia Stop Time: 09:58 Coding CPT Codes CPT Codes: ANESTH HYSTEROSCOPE/GRAPH - 19477 ([id number]) P2 - PATIENT W/MILD SYST DISEASE, QK - DENTAL PRACTICE MANAGER 2-4 CNCRNT ANES PROC, QX - ROUTE SALES MANAGER SVC W/ MD MED DIRECTION
[2024-11-14 10:00] VITALS: BP 135/85; PULSE 89; RESP 14; O2SAT 95
--- NOTE | 2024-11-14 10:00 | P.ANES_ITS ---
Anesthesia Charges Start Date/Time Anesthesia Start Date: 11/14/24 Anesthesia Start Time: 09:09 Stop Date/Time Anesthesia Stop Date: 11/14/24 Anesthesia Stop Time: 09:58 Coding CPT Codes CPT Codes: ANESTH HYSTEROSCOPE/GRAPH - 81503 ([id number]) P2 - PATIENT W/MILD SYST DISEASE, QK - BLACKJACK DEALER 2-4 CNCRNT ANES PROC, QX - SUPERVISOR AGRICULTURAL EDUCATION SVC W/ MD MED DIRECTION
--- NOTE | 2024-11-14 10:00 | W.ANESCHARGE ---
Anesthesia Charges Start Date/Time Anesthesia Start Date: 11/14/24 Anesthesia Start Time: 09:09 Stop Date/Time Anesthesia Stop Date: 11/14/24 Anesthesia Stop Time: 09:58 Coding CPT Codes CPT Codes: ANESTH HYSTEROSCOPE/GRAPH - 53695 ([id number]) P2 - PATIENT W/MILD SYST DISEASE, QK - MEDICAL LEAD 2-4 CNCRNT ANES PROC, QX - AIRCRAFT ARMORER SVC W/ MD MED DIRECTION
[2024-11-14 10:15] VITALS: BP 136/84; PULSE 84; RESP 14; O2SAT 96
[2024-11-14 10:29] LABS: Appearance Urine Cloudy (Clear); Bilirubin Urine 1+ (Negative); Blood Urine 2+ (Negative); Color Urine Yellow (Yellow); Glucose Urine Negative (Negative); Ketones Urine Trace (Negative); Leukocyte Esterase Urine Negative (Negative); Nitrite Urine Negative (Negative); Protein Urine 2+ (Negative); Specific Gravity Urine >= 1.030 (1.000-1.030)
[2024-11-14 10:30] VITALS: BP 143/84; PULSE 93; RESP 14; TEMP 36.7; O2SAT 99
[2024-11-14] MEDS: HYDROCODONE/ACETAMIN 7.5-325 TABLET 1 TAB PO (10:30)
[2024-11-14 10:45] VITALS: BP 138/80; PULSE 90; RESP 14; O2SAT 99
[2024-11-14 10:52] LABS: Amorphous Sediment Urine Many; Squamous Epithelial Cell Urine Moderate (None-Few); WBC Urine 0-2 (0-5)
[2024-11-14 10:53] LABS: Hyaline Casts Urine Few (None-Few); Mucus Urine Few
== END 2024-11-14 10:58 | disposition home or self-care (01) ==
PROVIDERS: Visit Provider Obstetrics & Gynecology
PROC: 0UDB8ZZ Extraction of Endometrium, Via Natural or Artificial Opening Endoscopic (ICD-10-PCS; CPT 58558; principal; 2024-11-14 09:15)
DX: N92.0 Excessive and frequent menstruation with regular cycle (principal); N84.0 Polyp of corpus uteri; D62 Acute posthemorrhagic anemia; R93.89 Abnormal findings on diagnostic imaging of other specified body structures; I10 Essential (primary) hypertension; Z86.14 Personal history of Methicillin resistant Staphylococcus aureus infection
CPT/HCPCS: 58558; 58300; 00952; 36415; 81001; 81003; 81025; 85018; 86850; 86900; 86901; 87086; 88305; J2003; A9270; C1782; J2250; J2405; J3490; J7120; J7298

== ENCOUNTER 2024-11-27 14:39 | Outpatient (CLI) | payer OTHER, SELFPAY ==
[2024-11-27 18:40] LABS: Bacterial Vaginosis* POSITIVE (Negative); Candida glab/krus NOT DETECTED (No Detected); Candida species NOT DETECTED (No Detected); Trichomonas vaginalis NOT DETECTED (No Detected)
[2024-11-27 19:10] LABS: Chlamydia DNA Amplified* NOT DETECTED (No Detected); GC DNA Amplified* NOT DETECTED (No Detected)
== END 2024-11-27 14:40 | disposition home or self-care (01) ==
PROVIDERS: Visit Provider Obstetrics & Gynecology
DX: N89.8 Other specified noninflammatory disorders of vagina (principal); N72 Inflammatory disease of cervix uteri; Z86.14 Personal history of Methicillin resistant Staphylococcus aureus infection; Z11.3 Encounter for screening for infections with a predominantly sexual mode of transmission
CPT/HCPCS: 81513; 87081; 87481; 87491; 87591; 87661